=== PATIENT | female | born 2005 | race African-American/Black ===

== ENCOUNTER 2024-05-11 11:46 | Emergency (ER) | payer BC, SELFPAY ==
[2024-05-11] VITALS (7 sets, daily range): BP systolic 107–133; BP diastolic 69–78; PULSE 68–90; RESP 13–17; TEMP 36.4–36.7; O2SAT 99–100
--- NOTE | ~2024-05-11 | XR_ITS ---
EXAMINATION: XR chest 1V portable DATE: 05/11/2024 12:41 INDICATION: Syncope. TECHNIQUE: A single frontal view of the chest was obtained. COMPARISON: None. FINDINGS: There is no pneumonia, pleural effusion, or pneumothorax. The heart size is normal. IMPRESSION: 1. No acute cardiopulmonary disease. Reviewed, dictated and finalized at location A.
--- NOTE | ~2024-05-11 | CT_ITS ---
EXAMINATION: CT brain wo con DATE: 05/11/2024 13:22 INDICATION: Syncope. Headache. TECHNIQUE: Computed tomography (CT) of the head was performed without intravenous contrast. The mA wa s adjusted according to patient size. Iterative reconstruction technique was employed. The dose-lengt h product was 605.33 mGy-cm. COMPARISON: None FINDINGS: There is no intracranial hemorrhage, acute infarction, or abnormal intracranial mass lesion . The ventricles are normal in size. The orbits are normal. The mastoid air cells are normal. The par anasal sinuses are clear. IMPRESSION: 1. Normal brain. Reviewed, dictated and finalized at location A. IMPRESSION: 1. Normal brain.
--- NOTE | 2024-05-11 11:57 | ECG_ITS ---
Test Date: 2024-05-11 12:08:36 Measurements Intervals [place] Rate: 78 P: 76 MI: 123 QRS: 77 QRSD: 80 T: 51 QT: 371 QTc: 423 Interpretive Statements SINUS RHYTHM No previous ECG available for comparison Electronically Signed On 05-11-2024 15:27:14 CDT by Luis Monroy M.D.
--- NOTE | 2024-05-11 12:02 | ED.DIZZY ---
HPI - Dizziness General Chief Complaint: Syncope Stated Complaint: syncopal episode yesterday Time Seen by Provider: 05/11/24 11:48 Source: patient Mode of arrival: ambulatory Limitations: no limitations History of Present Illness HPI Narrative: This is a 19-year-old female who presents to the ED for chief complaint of syncopal episode that occurred yesterday. 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 She was sitting down and observing an epidural block being performed on a patient. Reports that she had 2 episodes near syncope /syncope. There was a prodrome both times. States that she was found with her head on the side rail of the chair. Today she has had mild headache. Denies current chest pain, palpitations, numbness, weakness, shortness of breath, vision change, numbness, weakness. Related Data Allergies Allergy/AdvReac Type Severity Reaction Status Date / Time No Known Allergies Allergy Verified 05/11/24 13:46 Review of Systems Review of Systems: All systems as dictated in HPI Exam Narrative: GENERAL: Well-appearing, well-nourished, and in no acute distress. HEAD: Normocephalic, atraumatic. EYES: PERRLA and EOMI. ENT: Nares clear, no rhinorrhea or epistaxis. Mucous membranes moist. Oropharynx without tonsillar hypertrophy exudate or other lesions. NECK: Supple. No adenopathy or masses. CHEST: No respiratory distress. Clear to auscultation. No wheezes rales or rhonchi HEART: Regular rate and rhythm. No murmur heard. Normal peripheral pulses. ABDOMEN: Soft, nontender, nondistended, normal active bowel sounds. MSK: Normal range of motion. No edema. SKIN: Warm, dry, no rash. NEURO: Alert and oriented x4. No focal deficits. PSYCH: Normal mood and affect. Course Vital Signs Vital signs: Vital Signs Pulse Rate 74 05/11/24 11:51 Respiratory Rate 14 05/11/24 11:51 Blood Pressure 133/70 05/11/24 11:51 Pulse Oximetry 100 05/11/24 11:51 Temperature 97.6 F 05/11/24 14:21 Pulse Rate 68 05/11/24 14:21 Respiratory Rate 15 05/11/24 14:21 Blood Pressure 117/72 05/11/24 14:21 Pulse Oximetry 99 05/11/24 14:21 Oxygen Delivery Room Air 05/11/24 11:59 MDM - Dizziness MDM Narrative Medical decision making narrative: This is a 19 yo female presents to the ED for chief complaint of syncopal episode x2 yesterday while watching epidural procedure. Vitals normal. Exam unremarkable. EKG shows normal sinus rhythm Lab work unremarkable as well. CT brain shows no acute findings. Presentation consistent with vasovagal syncope Patient will be discharged in stable condition. Supportive measures discussed and return precautions given. Patient is understanding and agreeable with plan for discharge with PCP follow-up. Lab Data 05/11/24 12:17 05/11/24 12:17 Labs: Lab Results 05/11/24 Range/Units 12:17 WBC 5.5 (4.5-10.0) K/mm3 RBC 4.03 L (4.2-5.4) M/mm3 Hgb 12.4 (12.0-15.0) g/dL Hct 37.8 (37.0-47.0) % MCV 93.8 (80-100) fl MCH 30.8 (26-34) pg MCHC 32.8 (32-36) g/dl RDW 13.6 (11.5-14.5) % Plt Count 279 (150-375) k/mm3 MPV 10.8 H (7.4-10.4) fl Immature Gran % (Auto) 0.4 (0-0.5) % Neut % (Auto) 60.3 (45.5-73.1) % Lymph % (Auto) 31.4 (18.3-44.2) % [place] % (Auto) 6.1 (2.6-8.5) % Eos % (Auto) 1.6 (0-4.4) % Baso % (Auto) 0.2 (0.2-1.2) % Lymph # (Auto) 1.74 (0.9-3.2) K/mm3 [place] # (Auto) 0.3 (0.1-0.6) K/mm3 Eos # (Auto) 0.1 (0-0.3) K/mm3 Baso # (Auto) 0.0 (0.0-0.1) K/mm3 Abs Immat Gran (auto) 0.02 (0.00-0.031) K/mm3 Absolute Neuts (auto) 3.3 (1.3-6.7) K/mm3 Absolute Nucleated RBC 0.000 (0.0-0.012) K/mm3 Nucleated RBC % 0.0 (0.0-0.2) % Sodium 137 (137-145) mmol/L Potassium 3.7 (3.4-5.0) mmol/L Chloride 104 (98-107) mmol/L Carbon Dioxide 25 (22-30) mmol/L Anion Gap 8 (4-12) mmol/L BUN 5 L (7-17) mg/dL Creatinine 0.70 (0.7-1.0) mg/dL Estim Creat Clear Calc 88 ml/min Estimated GFR > 60 (59 - ) Glucose 82 (65-110) mg/dL Calcium 9.2 (8.4-10.2) mg/dL Total Bilirubin 1.1 (0.2-1.3) mg/dL AST 22 (14-36) U/L ALT 9 (6-35) U/L Alkaline Phosphatase 50 (38-126) U/L Total Protein 8.0 (6.3-8.2) g/dL Albumin 4.6 (3.5-5.1) g/dL ECG Data EKG #1: ECG completion date: 05/11/24 ECG completion time: 12:08 Prior ECG tracings: not available for review Interpretation: Sinus rhythm Rate 78 Normal QRS Normal QTC no acute ischemic findings Discharge Plan Discharge Clinical Impression: Vasovagal syncope Patient Disposition: Home, Self-Care Condition: Stable Instructions: Antibiotic Form Additional Instructions: Your exam and imaging today are reassuring. Please follow-up with PCP. If you have any new or worsening symptoms please return to the ER for further evaluation. Follow-up/Referrals: UNKNOWN,DOCTOR [Primary Care Provider] - Time of Disposition: 14:26
[2024-05-11 12:23] LABS: Basophils Percent Auto 0.2 % (0.2-1.2); Eosinophils Absolute Auto 0.1 K/mm3 (0-0.3); Eosinophils Percent Auto 1.6 % (0-4.4); Hematocrit 37.8 % (37.0-47.0); Hemoglobin 12.4 g/dL (12.0-15.0); Immature Granulocyte Absolute 0.02 K/mm3 (0.00-0.031); Immature Granulocyte Percent A 0.4 % (0-0.5); Lymphocytes Absolute Auto 1.74 K/mm3 (0.9-3.2); Lymphocytes Percent Auto 31.4 % (18.3-44.2); Mean Corpuscular HGB Conc 32.8 g/dl (32-36); Mean Corpuscular Hemoglobin 30.8 pg (26-34); Mean Corpuscular Volume 93.8 fl (80-100); Mean Platelet Volume 10.8 fl (7.4-10.4); Monocytes Absolute Auto 0.3 K/mm3 (0.1-0.6); Monocytes Percent Auto 6.1 % (2.6-8.5); Neutrophils Absolute Auto 3.3 K/mm3 (1.3-6.7); Neutrophils Percent Auto 60.3 % (45.5-73.1); Platelet Count Result 279 k/mm3 (150-375); Red Blood Count 4.03 M/mm3 (4.2-5.4); Red Cell Distribution Width 13.6 % (11.5-14.5); White Blood Count 5.5 K/mm3 (4.5-10.0)
[2024-05-11 12:35] LABS: Alanine Aminotransferase 9 U/L (6-35); Albumin Level 4.6 g/dL (3.5-5.1); Alkaline Phosphatase 50 U/L (38-126); Anion Gap 8 mmol/L (4-12); Aspartate Amino Transferase 22 U/L (14-36); Bilirubin,Total 1.1 mg/dL (0.2-1.3); Blood Urea Nitrogen 5 mg/dL (7-17); Calcium 9.2 mg/dL (8.4-10.2); Carbon Dioxide 25 mmol/L (22-30); Chloride 104 mmol/L (98-107); Estimated CRCL calculation 88 ml/min; Estimated Glomerular Filt Rate > 60; Glucose 82 mg/dL (65-110); Potassium 3.7 mmol/L (3.4-5.0); Sodium 137 mmol/L (137-145)
[2024-05-11] MEDS: Please add drug allergy info to patient profile. 1 EACH XX (13:46)
[2024-05-11] MEDS: ACETAMINOPHEN 500 MG TABLET 1000 MG PO (13:47)
[2024-05-11] MEDS: IBUPROFEN 400 MG TABLET 800 MG PO (13:48)
== END 2024-05-11 14:34 | disposition home or self-care (01) ==
PROVIDERS: Emergency Provider Physician Assistant
DX: R55 Syncope and collapse (principal); R51.9 Headache, unspecified
CPT/HCPCS: 36415; 70450; 71045; 80053; 85025; 93005; 99284; A9270